=== PATIENT | male | born 1980 ===

== ENCOUNTER → 2024-02-02 12:32 | Outpatient (REF) | payer BC, SELFPAY | LOC: MRI 12:32 | PROVIDERS: ATTENDING PHYSICIAN Physician Assistant Surgical; FAMILY PHYSICIAN Physician Assistant Medical | DX: M25.551 Pain in right hip (principal) | CPT/HCPCS: 73721 ==

== ENCOUNTER → 2024-07-27 12:59 | Outpatient (REF) | payer BC, SELFPAY | LOC: MRI 12:59 | PROVIDERS: ATTENDING PHYSICIAN Psychiatry & Neurology Behavioral Neurology & Neuropsychiatry; FAMILY PHYSICIAN Physician Assistant Medical | DX: M54.16 Radiculopathy, lumbar region (principal) | CPT/HCPCS: 72158; A9575 ==